=== PATIENT | male | born 1960 | race Caucasian/White ===

== ENCOUNTER 2019-12-31 06:50 | Day surgery (SDC) | payer MEDICAID, OTHER, SELFPAY ==
[2019-12-31] MEDS ORDERED: Propofol 200 MG/20 ML SDV ONE (08:12)
[2019-12-31] MEDS ORDERED: Midazolam 1 MG/ML 2 ML SDV ONE (08:13)
[2019-12-31] MEDS ORDERED: fentaNYL 100 MCG/2 ML SDV ONE (08:13)
[2019-12-31] MEDS ORDERED: Sodium Chloride 0.9% 1,000 ML IV SCH (08:30)
--- NOTE | 2019-12-31 13:48 | PROC ---
DATE OF PROCEDURE: 12/31/2019 SURGEON: Eduardo Wolfe MD PROCEDURE: Colonoscopy. PREPROCEDURE DIAGNOSIS: Screening colonoscopy. POSTPROCEDURE DIAGNOSES: 1. Screening colonoscopy. 2. Dunn diverticulosis. DESCRIPTION OF PROCEDURE: Risks and goals of the procedure including potential risks of uncontrolled bleeding, perforation requiring surgical intervention were reviewed with the patient. He gave informed consent to proceed. He was brought back to the endoscopy room. Sedation and monitoring were provided by Mr. Benedicton from the Anesthesia Service. Time-out was held prior to the procedure to confirm right site, right patient, right procedure, as well as to identify any potential concerns regarding the procedure, of which there were none. He was placed in a left lateral decubitus position. After adequate sedation was achieved, digital rectal exam was performed, which was unremarkable. Following this, flexible colonoscope was placed and advanced out through the colon to the cecum. Cecum was identified by the appendiceal orifice and ileocecal valve. Scope was then slowly withdrawn back through the length of the colon to the rectum where it was retroflexed, straightened, and removed. He was noted to have a small diverticula throughout the length of the colon. No other mucosal polyps, masses, or lesions were seen and the procedure was otherwise completed without complication. He will be monitored in [facility] in outpatient area until fully recovered from IV sedation and discharged to home. Eduardo Wolfe MD /[id number]
== END 2019-12-31 10:07 | disposition home or self-care (01) ==
LOC: JP.SDS 06:50
PROVIDERS: ATTEND Hospitalist
DX: Z12.11 Encounter for screening for malignant neoplasm of colon (principal); K57.30 Diverticulosis of large intestine without perforation or abscess without bleeding
CPT/HCPCS: 45378; J2250; J2704; J3010; J7030

== ENCOUNTER 2021-05-27 09:58 | Emergency (ER) | payer SELFPAY ==
[2021-05-27] MEDS ORDERED: Ketorolac 30 MG/ML SDV IM ONE (10:19)
[2021-05-27] MEDS ORDERED: Diphtheria,Pertussis(Acell),Tetanus Vaccine 0.5 ML Syringe IM ONE (10:19)
[2021-05-27] MEDS ORDERED: Acetaminophen/oxyCODONE 325-5 MG Tab PO STA (10:19)
--- NOTE | 2021-05-27 10:21 | EDM.PDOC ---
ED HPI GENERAL MEDICAL PROBLEM - General Chief Complaint: Burn Stated Complaint: BURNED RIGHT HAND Time Seen by Provider: 05/27/21 10:10 Source of Information: Reports: Patient, Old Records History Limitations: Reports: No Limitations - History of Present Illness INITIAL COMMENTS - FREE TEXT/NARRATIVE: 60 yo male presents with coker to the tips of his R long and ring fingers. His last tetanus was about 8 yrs ago. No tx prior to arrival. Has blistering present upon arrival. 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) Right Hand Pain Score (Numeric/FACES): 7 - Related Data Allergies Allergy/AdvReac Type Severity Reaction Status Date / Time No Known Allergies Allergy Verified 05/27/21 10:20 Home Meds: Home Meds Pseudoephedrine HCl [Sudafed] 30 mg PO DAILY PRN 12/27/19 [History] Tamsulosin HCl [Flomax] 0.4 mg PO DAILY 12/27/19 [History] Acetaminophen/HYDROcodone [HYDROcodone-Acetaminophen 5-525 MG] 1 - 2 tab PO Q6H PRN #10 tab 05/27/21 [Rx] Past Medical History Gastrointestinal History: Reports: GERD, Hemorrhoids Musculoskeletal History: Reports: Fracture Psychiatric History: Reports: Addiction, Anxiety - Past Surgical History GI Surgical History: Reports: EGD Musculoskeletal Surgical History: Reports: None Social & Family History - Family History Family Medical History: No Pertinent Family History - Caffeine Use Caffeine Use: Reports: Coffee, Soda ED ROS GENERAL - Review of Systems Review Of Systems: See Below Constitutional: Reports: No Symptoms HEENT: Reports: No Symptoms Skin: Reports: Erythema (and blistering of the tips of his R long and ring fingers) Neurological: Reports: No Symptoms ED EXAM, BURN/SMOKE INHALATION - Physical Exam Exam: See Below Exam Limited By: No Limitations General Appearance: Alert, WD/WN, No Apparent Distress Neurological: Alert, Oriented, CN II-XII Intact, Normal Cognition, No Motor/Sensory Deficits Psychiatric: Normal Affect, Normal Mood Skin Exam: Warm, Dry, Intact, No Rash, Other (2nd degree coker to the tips of his R long and ring fingers with blisters intact. There is some minimal surrounding redness. ). No: Normal Color Course - Vital Signs Last Recorded V/S: Last Vital Signs Temp 36.2 C 05/27/21 10:20 Pulse 98 05/27/21 10:20 Resp 18 05/27/21 10:20 BP 192/107 H 05/27/21 10:20 Pulse Ox 97 05/27/21 10:20 - Orders/Labs/Meds Orders: Active Orders 24 hr Category Date Time Status Vaccines to be Administered [RC] PER UNIT ROUTINE Care 05/27/21 10:19 Active Meds: Medications Discontinued Medications Generic Name Dose Route Start Last Admin Trade Name Freq PRN Reason Stop Dose Admin Diphtheria/Tetanus/Acell Pertussis 0.5 ml 05/27/21 10:19 05/27/21 10:27 Diphtheria,Pertussis(Acell),Tetanus Vaccine 0.5 Ml Syringe IM 05/27/21 10:20 0.5 ml .ONCE ONE Administration Ketorolac Tromethamine 30 mg 05/27/21 10:19 05/27/21 10:27 Ketorolac 30 Mg/Ml Sdv IM 05/27/21 10:20 30 mg ONETIME ONE Administration Oxycodone/Acetaminophen 1 tab 05/27/21 10:19 05/27/21 10:27 Acetaminophen/Oxycodone 325-5 Mg Tab PO 05/27/21 10:20 1 tab ONETIME STA Administration Departure - Departure Time of Disposition: 11:03 Disposition: Home, Self-Care 01 Condition: Fair Clinical Impression: 2nd deg burn finger Qualifiers: Encounter type: initial encounter Laterality: right Qualified Code(s): T23.221A - Burn of second degree of single right finger (nail) except thumb, initial encounter - Discharge Information *PRESCRIPTION DRUG MONITORING PROGRAM REVIEWED*: Yes *COPY OF PRESCRIPTION DRUG MONITORING REPORT IN PATIENT RICHARD: Yes Prescriptions: Acetaminophen/HYDROcodone [HYDROcodone-Acetaminophen 5-525 MG] 1 - 2 tab PO Q6H PRN #10 tab PRN Reason: Pain Referrals: Ranjan Tomas MD [Primary Care Provider] - Forms: ED Department Discharge Additional Instructions: Starting after 4 pm today take ibuprofen 600 mg every 6 hrs for pain relief. Add acetaminophen up to 1000 mg every 6 hrs OR hydrocodone/APAP for added relief. Keep cold on your coker for a few more hours if possible. Protect your fingers from bumping them to reduce pain. Once your blister(s) pop, you will need to keep the area clean for up to 72 more hrs. After blister(s) pop apply Bacitracin ointment 2-3 times a day for promotion of healing and to prevent infection. Recheck with your doctor on Tuesday. Sepsis Event Note (ED) - Focused Exam Vital Signs: Vital Signs Temp Pulse Resp BP Pulse Ox 05/27/21 10:20 36.2 C 98 18 192/107 H 97 05/27/21 10:15 36.2 C 98 18 192/107 H 97 - My Orders Last 24 Hours: My Active Orders 05/27/21 10:19 Vaccines to be Administered [RC] PER UNIT ROUTINE - Assessment/Plan Last 24 Hours: My Active Orders 05/27/21 10:19 Vaccines to be Administered [RC] PER UNIT ROUTINE
== END 2021-05-27 11:15 | disposition home or self-care (01) ==
LOC: JP.ED 09:58
DX: T23.231A Burn of second degree of multiple right fingers (nail), not including thumb, initial encounter (principal); Z23 Encounter for immunization; X08.8XXA Exposure to other specified smoke, fire and flames, initial encounter
CPT/HCPCS: 90471; 90715; 96372; 99283; A9270; J1885

== ENCOUNTER 2022-09-14 16:18 | Emergency (ER) | payer SELFPAY ==
[2022-09-14] MEDS ORDERED: Nitroglycerin 0.4 MG Tab.SL SL ONE (17:12)
[2022-09-14] MEDS ORDERED: Aspirin 81 MG Tab.Chew PO ONE (17:12)
== END 2022-09-14 19:38 | disposition home or self-care (01) ==
LOC: JP.ED 16:18
DX: R07.89 Other chest pain (principal); I10 Essential (primary) hypertension; Z79.899 Other long term (current) drug therapy
CPT/HCPCS: 36415; 80048; 84484; 85025; 85610; 85730; 93005; 99285; A9270

== ENCOUNTER 2022-09-26 15:11 | Emergency (ER) | payer OTHER ==
[2022-09-26] MEDS ORDERED: LORazepam 1 MG Tab PO ONE (16:08)
== END 2022-09-26 16:49 ==
LOC: JP.ED 15:11
DX: Z02.89 Encounter for other administrative examinations (principal); I10 Essential (primary) hypertension; Z79.899 Other long term (current) drug therapy
CPT/HCPCS: 80305; 99283; A9270

== ENCOUNTER 2023-11-09 10:05 | Emergency (ER) | payer SELFPAY ==
[2023-11-09 10:56] LABS: APPEARANCE,URINE TURBID (CLEAR); BILIRUBIN,URINE NEGATIVE (NEGATIVE); COLOR,URINE YELLOW (YELLOW); GLUCOSE,URINE NEGATIVE (NEGATIVE); KETONES,URINE NEGATIVE (NEGATIVE); LEUKOCYTE ESTERASE,URINE SMALL (NEGATIVE); NITRITE,URINE NEGATIVE (NEGATIVE); OCCULT BLOOD,URINE TRACE-INTACT (NEGATIVE); PH,URINE 8.5 (5.0-8.0); PROTEIN,URINE 100 mg/dL (NEGATIVE); UROBILINOGEN,URINE 0.2 EU/dL (0.2-1.0)
[2023-11-09] MEDS ORDERED: Ketorolac 30 MG/ML SDV IM ONE (11:02)
[2023-11-09 11:03] LABS: AMORPHOUS SEDIMENT,URINE RARE; BACTERIA,URINE MANY; EPITHELIAL CELLS,URINE NOT SEEN; MUCUS,URINE NOT SEEN; RBC,URINE 0-5 (0-5)
[2023-11-09 11:16] LABS: BASOPHILS ABSOLUTE AUTO 0.03 K/uL (0.00-0.10); BASOPHILS PERCENT AUTO 0.6 % (0.1-1.3); EOSINOPHILS ABSOLUTE AUTO 0.13 K/uL (0.00-0.40); EOSINOPHILS PERCENT AUTO 2.5 % (0.0-5.4); HEMATOCRIT 37.3 % (38.4-49.7); HEMOGLOBIN 12.6 g/dL (12.9-16.9); IMMATURE GRAN PERCENT AUTO 0.2 % (0.0-0.7); LYMPHOCYTES ABSOLUTE AUTO 1.61 K/uL (0.8-3.3); MEAN CORPUSCULAR HEMOGLOBIN 30.7 pg (31.6-35.5); MEAN CORPUSCULAR HGB CONC 33.8 g/dL (31.6-35.5); MONOCYTES ABSOLUTE AUTO 0.31 K/uL (0.20-0.90); NEUTROPHILS PERCENT AUTO 59.7 % (40.0-78.1); PLATELET COUNT,PLT 300 K/uL (130-375); WHITE BLOOD CELL COUNT,WBC 5.2 K/uL (3.2-11.0)
[2023-11-09 11:17] LABS: IMMATURE GRAN ABSOLUTE AUTO 0.01 K/uL (0.00-0.23)
[2023-11-09] MEDS ORDERED: Magnesium Citrate Solution 296 ML Bottle PO ONE (11:27)
[2023-11-09 11:47] LABS: ALANINE AMINOTRANSFERASE,ALT 20 U/L (12-78); ALBUMIN 3.4 g/dL (3.4-5.0); ALKALINE PHOSPHATASE 67 U/L (46-116); ANION GAP 10.4 mmol/L (5.0-14.0); ASPARTATE AMNIOTRANSFERASE,AST 18 U/L (15-37); BILIRUBIN TOTAL 0.2 mg/dL (0.2-1.0); BLOOD UREA NITROGEN,BUN 28 mg/dL (7-18); CALCIUM 7.9 mg/dL (8.5-10.1); CARBON DIOXIDE,CO2 25 mmol/L (21-32); CHLORIDE,CL 105 mmol/L (100-108); EST CRCL DRUG DOSING (CG) 67.48 mL/min; ESTIMATED GFR 86 mL/min (>60); GLUCOSE RANDOM 97 mg/dL (74-106); POTASSIUM,K 4.2 mmol/L (3.6-5.2); PROTEIN TOTAL,TP 6.7 g/dL (6.4-8.2); SODIUM,NA 140 mmol/L (140-148); TSH ULTRASENSITIVE 0.914 uIU/mL (0.358-3.740)
[2023-11-09 11:49] LABS: C-REACTIVE PROTEIN < 0.50 mg/dL (<0.50)
== END 2023-11-09 11:49 | disposition home or self-care (01) ==
LOC: JP.ED 10:05
DX: K59.00 Constipation, unspecified (principal); N39.0 Urinary tract infection, site not specified; N40.1 Benign prostatic hyperplasia with lower urinary tract symptoms; F10.10 Alcohol abuse, uncomplicated; D64.9 Anemia, unspecified; Z86.16 Personal history of COVID-19
CPT/HCPCS: 36415; 80053; 81001; 83690; 84443; 85025; 86140; 87086; 96372; 99283; J1885

== ENCOUNTER 2024-09-02 05:03 | Emergency (ER) | payer OTHER ==
[2024-09-02] MEDS ORDERED: Sodium Chloride 0.9% 10 ML Syringe FLUSH PRN (05:27)
[2024-09-02] MEDS: Aspirin 81 MG Tab.Chew PO ONE (05:36)
[2024-09-02] MEDS: LORazepam 2 MG/ML SDV IVPUSH ONE (05:36)
[2024-09-02 05:38] LABS: BASOPHILS ABSOLUTE AUTO 0.03 K/uL (0.00-0.10); BASOPHILS PERCENT AUTO 0.4 % (0.1-1.3); EOSINOPHILS ABSOLUTE AUTO 0.04 K/uL (0.00-0.40); EOSINOPHILS PERCENT AUTO 0.6 % (0.0-5.4); HEMATOCRIT 45.4 % (38.4-49.7); HEMOGLOBIN 15.9 g/dL (12.9-16.9); IMMATURE GRAN PERCENT AUTO 0.1 % (0.0-0.7); LYMPHOCYTES PERCENT AUTO 20.9 % (11.4-47.7); MEAN CORPUSCULAR HEMOGLOBIN 31.8 pg (31.6-35.5); MEAN CORPUSCULAR VOLUME 90.8 fL (81.4-99.0); MONOCYTES ABSOLUTE AUTO 0.52 K/uL (0.20-0.90); MONOCYTES PERCENT AUTO 7.8 % (3.3-12.6); NEUTROPHILS PERCENT AUTO 70.2 % (40.0-78.1); PLATELET COUNT,PLT 313 K/uL (130-375); WHITE BLOOD CELL COUNT,WBC 6.7 K/uL (3.2-11.0)
[2024-09-02 05:40] LABS: IMMATURE GRAN ABSOLUTE AUTO 0.01 K/uL (0.00-0.23)
[2024-09-02 05:53] LABS: CALCIUM 9.4 mg/dL (8.5-10.1); CREATININE 1.2 mg/dL (0.8-1.3); EST CRCL DRUG DOSING (CG) 53.44 mL/min; POTASSIUM,K 3.7 mmol/L (3.6-5.2); TROPONIN I HIGH SENSITIVITY 8.6 pg/mL (<=60.3)
[2024-09-02 06:00] LABS: ANION GAP 16.7 mmol/L (5.0-14.0)
== END 2024-09-02 06:46 ==
LOC: JP.ED 05:03
DX: F41.0 Panic disorder [episodic paroxysmal anxiety] (principal); I10 Essential (primary) hypertension; Z86.16 Personal history of COVID-19; Z79.899 Other long term (current) drug therapy
CPT/HCPCS: 36415; 71045; 80048; 84484; 85025; 93005; 96374; 99285; A9270; J2060

== ENCOUNTER 2024-09-03 05:32 | Emergency (ER) | payer OTHER ==
[2024-09-03 05:57] LABS: BASOPHILS PERCENT AUTO 0.2 % (0.1-1.3); EOSINOPHILS PERCENT AUTO 0.2 % (0.0-5.4); HEMATOCRIT 47.5 % (38.4-49.7); HEMOGLOBIN 16.4 g/dL (12.9-16.9); IMMATURE GRAN ABSOLUTE AUTO 0.03 K/uL (0.00-0.23); IMMATURE GRAN PERCENT AUTO 0.4 % (0.0-0.7); LYMPHOCYTES ABSOLUTE AUTO 1.62 K/uL (0.8-3.3); LYMPHOCYTES PERCENT AUTO 19.2 % (11.4-47.7); MEAN CORPUSCULAR HEMOGLOBIN 31.7 pg (31.6-35.5); MEAN CORPUSCULAR HGB CONC 34.5 g/dL (31.6-35.5); MEAN CORPUSCULAR VOLUME 91.7 fL (81.4-99.0); MONOCYTES ABSOLUTE AUTO 0.56 K/uL (0.20-0.90); MONOCYTES PERCENT AUTO 6.7 % (3.3-12.6); NEUTROPHILS ABSOLUTE AUTO 6.17 K/uL (1.0-7.6); NEUTROPHILS PERCENT AUTO 73.3 % (40.0-78.1); PLATELET COUNT,PLT 323 K/uL (130-375); RED BLOOD CELL COUNT 5.18 M/uL (4.14-5.76); WHITE BLOOD CELL COUNT,WBC 8.4 K/uL (3.2-11.0)
[2024-09-03 06:01] LABS: BASOPHILS ABSOLUTE AUTO 0.02 K/uL (0.00-0.10); EOSINOPHILS ABSOLUTE AUTO 0.02 K/uL (0.00-0.40)
[2024-09-03] MEDS: LORazepam 2 MG/ML SDV IVPUSH ONE (06:01)
[2024-09-03 06:22] LABS: CALCIUM 9.8 mg/dL (8.5-10.1); CREATININE 1.3 mg/dL (0.8-1.3); EST CRCL DRUG DOSING (CG) 51.25 mL/min; POTASSIUM,K 3.9 mmol/L (3.6-5.2); TROPONIN I HIGH SENSITIVITY 7.1 pg/mL (<=60.3)
[2024-09-03 06:26] LABS: ANION GAP 17.9 mmol/L (5.0-14.0)
== END 2024-09-03 06:50 ==
LOC: JP.ED 05:32
DX: F41.0 Panic disorder [episodic paroxysmal anxiety] (principal); I10 Essential (primary) hypertension; Z86.16 Personal history of COVID-19; Z79.899 Other long term (current) drug therapy
CPT/HCPCS: 36415; 80048; 84484; 85025; 93005; 96374; 99285; J2060; 93010; 99284

== ENCOUNTER 2024-12-06 11:29 | Emergency (ER) | payer MEDICAID ==
[2024-12-06] MEDS: Nitroglycerin 0.4 MG Tab.SL SL PRN (12:49)
[2024-12-06] MEDS: Aspirin 81 MG Tab.Chew PO ONE (12:49)
[2024-12-06] MEDS: Sodium Chloride 0.9% 10 ML Syringe FLUSH PRN (12:50)
[2024-12-06 12:51] LABS: BASOPHILS PERCENT AUTO 0.3 % (0.1-1.3); HEMATOCRIT 43.4 % (38.4-49.7); HEMOGLOBIN 15.1 g/dL (12.9-16.9); IMMATURE GRAN ABSOLUTE AUTO 0.03 K/uL (0.00-0.23); IMMATURE GRAN PERCENT AUTO 0.5 % (0.0-0.7); LYMPHOCYTES ABSOLUTE AUTO 0.49 K/uL (0.8-3.3); LYMPHOCYTES PERCENT AUTO 8.5 % (11.4-47.7); MEAN CORPUSCULAR HEMOGLOBIN 32.2 pg (31.6-35.5); MEAN CORPUSCULAR HGB CONC 34.8 g/dL (31.6-35.5); MEAN CORPUSCULAR VOLUME 92.5 fL (81.4-99.0); MONOCYTES ABSOLUTE AUTO 0.71 K/uL (0.20-0.90); MONOCYTES PERCENT AUTO 12.3 % (3.3-12.6); NEUTROPHILS ABSOLUTE AUTO 4.52 K/uL (1.0-7.6); NEUTROPHILS PERCENT AUTO 78.4 % (40.0-78.1); PLATELET COUNT,PLT 262 K/uL (130-375); RED BLOOD CELL COUNT 4.69 M/uL (4.14-5.76); WHITE BLOOD CELL COUNT,WBC 5.8 K/uL (3.2-11.0)
[2024-12-06 12:56] LABS: BASOPHILS ABSOLUTE AUTO 0.02 K/uL (0.00-0.10)
[2024-12-06] MEDS: Morphine 4 MG/ML Syringe IVPUSH PRN (12:58)
[2024-12-06 13:15] LABS: ALANINE AMINOTRANSFERASE,ALT 18 U/L (12-78); ALBUMIN 3.9 g/dL (3.4-5.0); ALKALINE PHOSPHATASE 82 U/L (46-116); ASPARTATE AMNIOTRANSFERASE,AST 16 U/L (15-37); BILIRUBIN TOTAL 0.3 mg/dL (0.2-1.0); BLOOD UREA NITROGEN,BUN 13 mg/dL (7-18); CALCIUM 8.7 mg/dL (8.5-10.1); CARBON DIOXIDE,CO2 28 mmol/L (21-32); CHLORIDE,CL 100 mmol/L (100-108); CREATININE 1.1 mg/dL (0.8-1.3); EST CRCL DRUG DOSING (CG) 60.57 mL/min; ESTIMATED GFR 76 mL/min (>60); GLUCOSE RANDOM 83 mg/dL (74-106); POTASSIUM,K 3.7 mmol/L (3.6-5.2); PROTEIN TOTAL,TP 7.7 g/dL (6.4-8.2); SODIUM,NA 138 mmol/L (140-148); TROPONIN I HIGH SENSITIVITY 5.4 pg/mL (<=60.3)
[2024-12-06 13:16] LABS: ANION GAP 13.7 mmol/L (5.0-14.0)
== END 2024-12-06 14:40 | disposition home or self-care (01) ==
LOC: JP.ED 11:29
DX: R07.89 Other chest pain (principal); I10 Essential (primary) hypertension; M19.90 Unspecified osteoarthritis, unspecified site; Z87.891 Personal history of nicotine dependence; Z79.82 Long term (current) use of aspirin; Z79.899 Other long term (current) drug therapy
CPT/HCPCS: 36415; 71045; 80053; 83605; 84484; 85025; 93005; 96374; 99285; A9270; J2270

== ENCOUNTER 2024-12-07 13:59 | Emergency (ER) | payer MEDICAID ==
[2024-12-07 15:17] LABS: BASOPHILS PERCENT AUTO 0.3 % (0.1-1.3); HEMATOCRIT 41.8 % (38.4-49.7); HEMOGLOBIN 14.6 g/dL (12.9-16.9); IMMATURE GRAN PERCENT AUTO 0.2 % (0.0-0.7); LYMPHOCYTES ABSOLUTE AUTO 0.43 K/uL (0.8-3.3); MEAN CORPUSCULAR HEMOGLOBIN 32.2 pg (31.6-35.5); MEAN CORPUSCULAR HGB CONC 34.9 g/dL (31.6-35.5); MEAN CORPUSCULAR VOLUME 92.1 fL (81.4-99.0); MONOCYTES ABSOLUTE AUTO 0.66 K/uL (0.20-0.90); MONOCYTES PERCENT AUTO 10.8 % (3.3-12.6); NEUTROPHILS ABSOLUTE AUTO 4.99 K/uL (1.0-7.6); NEUTROPHILS PERCENT AUTO 81.7 % (40.0-78.1); PLATELET COUNT,PLT 225 K/uL (130-375); RED BLOOD CELL COUNT 4.54 M/uL (4.14-5.76); WHITE BLOOD CELL COUNT,WBC 6.1 K/uL (3.2-11.0)
[2024-12-07 15:19] LABS: BASOPHILS ABSOLUTE AUTO 0.02 K/uL (0.00-0.10); IMMATURE GRAN ABSOLUTE AUTO 0.01 K/uL (0.00-0.23)
[2024-12-07 15:42] LABS: CALCIUM 8.4 mg/dL (8.5-10.1); CREATININE 1.3 mg/dL (0.8-1.3); EST CRCL DRUG DOSING (CG) 51.25 mL/min; POTASSIUM,K 3.7 mmol/L (3.6-5.2); TROPONIN I HIGH SENSITIVITY 6.1 pg/mL (<=60.3)
[2024-12-07 15:43] LABS: ANION GAP 14.7 mmol/L (5.0-14.0)
[2024-12-07 15:55] LABS: CORONAVIRUS COVID-19 NAA NEGATIVE (NEGATIVE); INFLUENZA A NAA POSITIVE (NEGATIVE); INFLUENZA B NAA NEGATIVE (NEGATIVE); RESPIRATORY SYNCYTIAL VIR NAA NEGATIVE (NEGATIVE)
[2024-12-07] MEDS: Ibuprofen 600 MG Tab PO ONE (16:51)
[2024-12-07] MEDS: Isosorbide Dinitrate 10 MG Tab PO ONE (16:55)
== END 2024-12-07 17:30 | disposition home or self-care (01) ==
LOC: JP.ED 13:59
DX: J10.1 Influenza due to other identified influenza virus with other respiratory manifestations (principal); I10 Essential (primary) hypertension; Z79.82 Long term (current) use of aspirin; Z79.899 Other long term (current) drug therapy
CPT/HCPCS: 0241U; 36415; 80048; 84484; 85025; 93005; 99285; A9270